=== PATIENT | female | born 1985 | race Caucasian/White ===

== ENCOUNTER 2017-06-01 09:55 | Emergency (ER) ==
[2017-06-01 10:07] VITALS: BP 109/65; TEMP 97.7; BMI 26.9
--- NOTE | 2017-06-01 10:58 | DI ---
Exam: Two x-rays of the chest. Comparison: None available. Reason for exam: Cough. FINDINGS: No pneumothorax, pleural effusion, or focal consolidation. The cardiac silhouette is not enlarged. The imaged osseous structures appear grossly unremarkable without acute fracture. Impression: No acute cardiopulmonary process.
--- NOTE | 2017-06-01 11:16 | CT ---
EXAM: CT abdomen pelvis without contrast HISTORY: Lower abdominal pain 2 weeks COMPARISON: None TECHNIQUE: CT abdomen pelvis performed without intravenous contrast. Coronal and sagittal reformatt ed images obtained. FINDINGS: Lung bases clear. No free air. No acute abnormalities of the bones. Heart normal in siz e. Evaluation organ parenchyma limited without contrast. Liver unremarkable. Gallbladder unremarka ble. Pancreas unremarkable. Spleen unremarkable. Adrenals unremarkable. Kidneys unremarkable with out hydronephrosis or nephrolithiasis. No calculi visualized in normal course of the ureters. Bladd er unremarkable. Uterus unremarkable. Aorta normal in caliber. No lymphadenopathy or ascites. Sma ll fat-containing periumbilical hernia. Stomach appears normal. No dilated loops small bowel. Appe ndix appears normal. Colon unremarkable. No inflammatory stranding identified in the abdomen or pel vis. IMPRESSION: No acute inflammatory process identified in the abdomen or pelvis. No hydronephrosis or nephrolithiasis.
--- NOTE | 2017-06-01 11:28 | ED.PDOC ---
General ED Provider: Dr. JORGE JACQUES Chief Complaint: Urinary Problem Stated Complaint: UTI SYMPTOMS Time Seen by Physician: 10:00 (SEEN WITH DU CRAWFORD ) Mode of Arrival: Walk-In Information Source: Patient Exam Limitations: No limitations Nursing and Triage Documentation Reviewed and Agree: Yes Reviewed sepsis parameters & appropriate labs ordered?: Yes System Inflammatory Response Syndrome: Not Applicable Sepsis Protocol: For patient's 13 years and over: Temp is 96.8 and below OR 101 and greater Pulse >90 BPM Resp >20/minute Acutely Altered Mental Status Are patient's symptoms suggestive of a new infection, such as: -Pneumonia -Skin, Soft Tissue -Endocarditis -UTI -Bone, Joint Infection -Implantable Device -Acute Abdominal Infection -Wound Infection -Meningitis -Blood Stream Catheter Infection -Unknown Complaint Exam - STD Male Complaint/Exam Onset/Duration: 2 DAYS Symptoms Are: Still present Timing: Intermittent Initial Severity: Moderate Current Severity: Mild Location: Reports: Suprapubic Aggravating: Reports: Voiding, Straining Alleviating: Reports: None Associated Signs and Symptoms: Reports: Dysuria. Denies: Penile sores, Scrotal pain, Scrotal swelling, Testicular pain, Testicular swelling Related History: Reports: Similar episode Related Surgical History: Reports: None Differential Diagnoses: UTI Review of Systems - Review Of Systems Constitutional: Reports: Malaise, Loss of appetite Eyes: Reports: No symptoms Ears, Nose, Mouth, Throat: Reports: Throat pain Respiratory: Reports: Cough Cardiac: Reports: No symptoms GI: Reports: Abdominal pain : Reports: No symptoms Musculoskeletal: Reports: No symptoms Skin: Reports: No symptoms Neurological: Reports: No symptoms Endocrine: Reports: No symptoms Hematologic/Lymphatic: Reports: No symptoms All Other Systems: Reviewed and Negative Past Medical History - Past Medical History Previously Healthy: Yes Endocrine: Reports: DM 1 Cardiovascular: Reports: None Respiratory: Reports: None Hematological: Reports: None Gastrointestinal: Reports: None Genitourinary: Reports: None Neuro/Psych: Reports: None Musculoskeletal: Reports: None Cancer: Reports: None Last Menstrual Period: 05/26 - Surgical History General Surgical History: Reports: None - Family History Family History: Reports: None - Social History Smoking Status: Never smoker Hx Substance Use: No Alcohol Screening: None - Immunizations Tetanus Shot up to Date: Yes Physical Exam - Physical Exam Appearance: Well-appearing, No pain distress, Well-nourished Eyes: DAVID, EOMI, Conjunctiva clear ENT: Ears normal, Nose normal, Oropharynx normal Respiratory: Airway patent, Breath sounds clear, Breath sounds equal, Respirations nonlabored Cardiovascular: RRR, Pulses normal, No rub, No murmur GI/: Soft, Nontender, No masses, Bowel sounds normal, No Organomegaly Musculoskeletal: Normal strength, ROM intact, No edema, No calf tenderness Skin: Warm, Dry, Normal color Neurological: Sensation intact, Motor intact, Reflexes intact, Cranial nerves intact, Alert, Oriented Psychiatric: Affect appropriate, Mood appropriate Interpretation - Radiology Interpretation Radiology Interpretation By: ED Physician Radiology Results: Negative Critical Care Note - Critical Care Note Total Time (mins): 0 Course - Course Hematology/Chemistry: 06/01/17 10:15 06/01/17 10:15 Orders, Labs, Meds: Lab Review 06/01/17 06/01/17 06/01/17 10:03 10:03 10:03 WBC RBC Hgb Hct MCV MCH MCHC RDW Coeff of [place]ven[place] Plt Count Immature Gran % (Auto) Neut % (Auto) Lymph % (Auto) [place] % (Auto) Eos % (Auto) Baso % (Auto) Immature Gran # (Auto) Neut # Lymph # [place] # Eos # Baso # Sodium Potassium Chloride Carbon Dioxide Anion Gap BUN Creatinine Estimated GFR (MDRD) BUN/Creatinine Ratio Glucose Calcium Total Bilirubin AST ALT Alkaline Phosphatase Total Protein Albumin Globulin Albumin/Globulin Ratio Urine Color Yellow Urine Clarity Slightly Urine pH 6.0 Ur Specific [place] 1.025 Urine Protein 1+ Urine Glucose (UA) 2+ Urine Ketones Negative Urine Blood 1+ Urine Nitrite Negative Urine Bilirubin Negative Urine Urobilinogen 0.2 Ur Leukocyte Esterase 1+ Urine Microscopic WBC Tntc Ur Squamous Epith Cells Not present Urine Test Negative Influenza A (Rapid) Negative by naat Influenza B (Rapid) Negative by naat 06/01/17 06/01/17 10:15 10:15 WBC 10.59 H RBC 5.32 Hgb 15.9 Hct 45.7 MCV 85.9 MCH 29.9 MCHC 34.8 RDW Coeff of [place]ven[place] 11.6 Plt Count 249 Immature Gran % (Auto) 0.3 Neut % (Auto) 71.5 Lymph % (Auto) 21.6 [place] % (Auto) 5.2 Eos % (Auto) 0.6 Baso % (Auto) 0.8 Immature Gran # (Auto) 0.0 Neut # 7.6 H Lymph # 2.3 [place] # 0.6 Eos # 0.1 Baso # 0.1 Sodium 139 Potassium 3.9 Chloride 107 Carbon Dioxide 24 Anion Gap 11.9 BUN 14 Creatinine 0.81 Estimated GFR (MDRD) 83.00 BUN/Creatinine Ratio 17.28 Glucose 181 H Calcium 9.3 Total Bilirubin 0.4 AST 13 L ALT 17 Alkaline Phosphatase 49 Total Protein 7.5 Albumin 3.9 Globulin 3.6 Albumin/Globulin Ratio 1.08 Urine Color Urine Clarity Urine pH Ur Specific [place] Urine Protein Urine Glucose (UA) Urine Ketones Urine Blood Urine Nitrite Urine Bilirubin Urine Urobilinogen Ur Leukocyte Esterase Urine Microscopic WBC Ur Squamous Epith Cells Urine Test Influenza A (Rapid) Influenza B (Rapid) Orders Category Date Time Status ACCUCHECK (ED) [ED ACCUCHECK ASSESSMENT] .ONCE EMERGENCY 06/01/17 10:53 Active CBC W/ AUTO DIFF Stat LAB 06/01/17 10:15 Completed COMPREHENSIVE METABOLIC PANEL Stat LAB 06/01/17 10:15 Completed MOLECULAR GROUP A STREP Stat LAB 06/01/17 10:03 Results RAPID FLU A/B Stat LAB 06/01/17 10:03 Completed STREP SCREEN Stat LAB 06/01/17 10:03 Results URINALYSIS C & S IF INDICATED Stat LAB 06/01/17 10:03 Completed URINE CULTURE Stat LAB 06/01/17 10:50 Received URINE Stat LAB 06/01/17 10:03 Completed CHEST, 2 VIEWS PA & LAT Stat RADS 06/01/17 10:[address] ABD/PEL WO RENAL STONE PROT Stat RADS 06/01/17 10:03 Completed Vital Signs: Temp Pulse Resp BP Pulse Ox 06/01/17 10:00 97.7 F 94 H 16 109/65 98 Departure - Departure Time of Disposition: 11:27 (GAVE DISCHARGE INFO AT COMPUTER TERMINAL ALL LABS AND IMAGING DISCUSSED WITH DETAIL ) Disposition: HOME SELF-CARE Discharge Problem: Urinary symptoms, Urinary tract infectious disease UTI (urinary tract infection) Qualifiers: Urinary tract infection type: site unspecified Hematuria presence: with hematuria Qualified Code(s): N39.0 - Urinary tract infection, site not specified ; R31.9 - Hematuria, unspecified; R31.9 - Hematuria, unspecified Instructions: Urinary Tract Infection in Women (ED) Condition: Good Pt referred to PMD for follow-up: Yes Additional Instructions: Please call your Family Physician as soon as possible to schedule a follow-up appointment. Allergies/Adverse Reactions: Allergies No Known Allergies Allergy (Unverified 06/01/17 10:20) Home Medications: Ambulatory Orders Insulin NPH Human Isophane [Novolin N] 10 units SQ QPM 06/01/17 Insulin NPH Human Isophane [Novolin N] 30 units SQ DAILY 06/01/17 Insulin Regular, Human [Novolin R] 2 units SQ PRN PRN MDD other 06/01/17
== END 2017-06-01 11:44 | disposition home or self-care (01) ==
LOC: ED 09:55
DX: N39.0 Urinary tract infection, site not specified (principal)
CPT/HCPCS: 36415; 74176; 80053; 81001; 81025; 82962; 85025; 87086; 87186; 87502; 87651; 87880; 99283

== ENCOUNTER 2017-06-04 16:10 | Outpatient (CLI) | END 2017-06-04 16:11 | disposition home or self-care (01) | LOC: LAB 16:10 | PROVIDERS: ATTEND Emergency Medicine | DX: E11.69 Type 2 diabetes mellitus with other specified complication (principal); E66.9 Obesity, unspecified | CPT/HCPCS: 36415; 83036; 83525 ==